=== PATIENT | male | born 1955 | race Caucasian/White ===

== ENCOUNTER 2020-09-26 14:28 | Observation (INO) ==
[2020-09-26] MEDS ORDERED: KETOROLAC TROMETHAMINE 15 MG/ML VIAL IV STA (14:48)
[2020-09-26] MEDS ORDERED: SODIUM CHLORIDE 0.9% 1000ML 1,000 ML IV ONE (14:48)
[2020-09-26] MEDS ORDERED: oxyCODONE/ACETAMINOPHEN 5mg/325mg TAB PO STA (14:50)
--- NOTE | 2020-09-26 14:53 | Emergency Department Note ---
History of Present Illness General Chief Complaint: Flank Pain Stated Complaint: BACK PAIN Time Seen by Provider: 09/26/20 14:36 History of Present Illness Provider Complaint: flank pain (L) Onset (ago): 2 day(s) Pain Consistency: intermittent Location: L flank Radiation: LLQ Severity: severe Maximum Pain Intensity: 10 Current Pain Intensity: 9 Quality: + stabbing and + sharp Relieved By: + nothing Exacerbated By: + other (urination) Context: + history of similar episodes (hisotry kidney stones); no foreign travel, no possible food poisoning, no recent antibiotic use, no recent surgery/procedure and no recent injury Associated Symptoms: + nausea and + dysuria; no vomiting, no diarrhea, no fever, no chills, no constipation, no hematemesis, no hematochezia, no melena, no hematuria, no anorexia, no headache, no neck pain, no back pain, no chest pain, no weakness, no breathing difficulty and no numbness Home Medications Medication Instructions Recorded Confirmed Type etodolac 200 mg PO BID PRN #20 cap 09/25/20 09/26/20 Rx ondansetron 4 mg PO Q8H PRN #30 tab 09/25/20 09/26/20 Rx tamsulosin [Flomax] 0.4 mg PO DAILY #14 cap 09/25/20 09/26/20 Rx Allergies Allergy/AdvReac Type Severity Reaction Status Date / Time No Known Allergies Allergy Unverified 09/25/20 11:05 Past Med/Surg History Medical History (Updated 09/26/20 @ 17:16 by Berny Rutherford) Calculus of kidney Dyslipidemia Surgical History H/O lithotripsy Family History Other Kidney stones Social History Smoking Status: Never smoker Hx Alcohol Use: Yes Alcohol type: hard liquor Alcohol Intake Frequency: Monthly or Less Preferred Language: Faroese Feels Safe at Home: Yes Review of Systems A total of 10 systems reviewed and were otherwise negative Physical Exam Vital Signs: Vital Signs - 24 hr 09/26/20 14:29 09/26/20 14:43 09/26/20 14:46 Temperature 36.2 C L Temperature Source Temporal Artery Sc an Pulse Rate 91 H 83 89 Pulse Rate [Left F rosaura] 87 Pulse Rate from Sp O2 Sensor 84 Pulse Rhythm Regular Pulse Rhythm [Left Finger] Regular Pulse Strength [Le ft Finger] Normal Respiratory Rate 18 21 15 Respiratory Effort / Characteristics Non-Labored Respiratory Depth Normal Respiratory Patter n Regular Blood Pressure 176/95 H 181/95 H Blood Pressure [Ri ght Arm] 181/95 H Blood Pressure Radha n 122 123 Blood Pressure Radha n [Right Arm] 123 Blood Pressure Pos ition [Right Arm] Sitting Pulse Oximetry 96 97 97 Oxygen Delivery Me thod Room Air Room Air Sepsis Recent Feve r Within 48 Hours No Sepsis New/Unexpla ined Change in Men gila Status No Sepsis Action Take n by Nursing No Action Required 09/26/20 15:24 09/26/20 15:30 09/26/20 15:40 Temperature Temperature Source Pulse Rate 82 86 82 Pulse Rate [Left F rosaura] Pulse Rate from Sp O2 Sensor 82 87 82 Pulse Rhythm Pulse Rhythm [Left Finger] Pulse Strength [Le ft Finger] Respiratory Rate 19 20 20 Respiratory Effort / Characteristics Respiratory Depth Respiratory Patter n Blood Pressure Blood Pressure [Ri ght Arm] Blood Pressure Radha n Blood Pressure Radha n [Right Arm] Blood Pressure Pos ition [Right Arm] Pulse Oximetry 95 96 95 Oxygen Delivery Me thod Sepsis Recent Feve r Within 48 Hours Sepsis New/Unexpla ined Change in Men gila Status Sepsis Action Take n by Nursing 09/26/20 15:50 09/26/20 16:00 09/26/20 16:10 Temperature Temperature Source Pulse Rate 87 96 H 81 Pulse Rate [Left F rosaura] Pulse Rate from Sp O2 Sensor 85 98 H 83 Pulse Rhythm Pulse Rhythm [Left Finger] Pulse Strength [Le ft Finger] Respiratory Rate 24 18 14 Respiratory Effort / Characteristics Respiratory Depth Respiratory Patter n Blood Pressure Blood Pressure [Ri ght Arm] Blood Pressure Radha n Blood Pressure Radha n [Right Arm] Blood Pressure Pos ition [Right Arm] Pulse Oximetry 97 96 95 Oxygen Delivery Me thod Sepsis Recent Feve r Within 48 Hours Sepsis New/Unexpla ined Change in Men gila Status Sepsis Action Take n by Nursing 09/26/20 16:20 09/26/20 16:30 09/26/20 16:54 Temperature Temperature Source Pulse Rate 90 91 H Pulse Rate [Left F rosaura] 78 Pulse Rate from Sp O2 Sensor 88 86 Pulse Rhythm Pulse Rhythm [Left Finger] Regular Pulse Strength [Le ft Finger] Normal Respiratory Rate 19 17 20 Respiratory Effort / Characteristics Non-Labored Sponta neous Respiratory Depth Normal Respiratory Patter n Regular Blood Pressure Blood Pressure [Ri ght Arm] 129/85 Blood Pressure Radha n Blood Pressure Radha n [Right Arm] 99 Blood Pressure Pos ition [Right Arm] Sitting Pulse Oximetry 98 97 98 Oxygen Delivery Me thod Room Air Sepsis Recent Feve r Within 48 Hours Sepsis New/Unexpla ined Change in Men gila Status Sepsis Action Take n by Nursing Physical Exam: Physical Exam GENERAL: He is oriented to person, place, and time. He appears well-developed and well-nourished. He does not appear distressed. HENT: Exam performed. - Head: Normocephalic and atraumatic. - Right Ear: External ear normal. No mastoid tenderness. - Left Ear: External ear normal. No mastoid tenderness. - Mouth/Throat: The oropharynx is clear and moist. No trismus in the jaw. No dental abscesses or uvula swelling. No oropharyngeal exudate or tonsillar abscesses. EYES: Conjunctivae and EOM are normal. Pupils are equal, round, and reactive to light. Right eye exhibits no discharge. Left eye exhibits no discharge. No scleral icterus. NECK: Normal range of motion. Neck supple. No JVD present. No spinous process tenderness present. No carotid bruit present. No rigidity. No tracheal deviation and normal range of motion present. No Brudzinski's sign and no Kernig's sign noted. CV: Normal rate, regular rhythm, normal heart sounds and intact distal pulses. There is no peripheral edema. Palpable radial pulses bue. PULM/CHEST: Effort normal and breath sounds normal. No respiratory distress. No stridor. He has no wheezes. He has no rales. - Chest Wall: He exhibits no tenderness. ABD: The abdomen is soft. Bowel sounds are normal. He has no distension. No mass is present. There is no tenderness. There is no rebound, no guarding, no Rosita y's sign and no tenderness at McBurney's point. Rovsig negative. Left-sided CVA tenderness. MUSC/SKEL: Normal range of motion. There is no peripheral edema, tenderness or deformity. LYMPH: No cervical adenopathy. NEURO: He is alert and oriented to person, place, and time. He has normal strength. No cranial nerve deficit or sensory deficit. Coordination and gait normal. GCS eye subscore is 4. GCS verbal subscore is 5. GCS motor subscore is 6. Cerebellar tests wnl. SKIN: Skin is warm and dry. He is not diaphoretic. PSYCH: He has a normal mood and affect. Behavior is normal. Judgment and thought content normal. Course Course 1436: The patient was evaluated in room C2. A complete history and physical exam was performed Cardiac monitoring: An order was placed for continuous cardiac monitoring. The monitor shows a rate of 90 with sinus rhythm 1545: Vital signs stable. Labs show acute kidney injury with creatinine of 1.68. This is elevated from yesterday when his creatinine was 1.14. [facility]. Zeny Lomax states to admit to Dr. Scanlon. Administered Medications Discontinued Medications Sodium Chloride (Nss 1000ml) 1,000 mls @ 999 mls/hr IV .Q1H1M ONE Stop: 09/26/20 15:48 Last Infusion: 09/26/20 16:21 Dose: 0 mls/hr Documented by: [id number] Admin: 09/26/20 14:58 Dose: 999 mls/hr Documented by: [id number] Ketorolac Tromethamine (Ketorolac Tromethamine 15 Mg/Ml Vial) 30 mg IV NOW STA Stop: 09/26/20 14:49 Last Admin: 09/26/20 15:07 Dose: 30 mg Documented by: [id number] Oxycodone/Acetaminophen (Oxycodone/Acetaminophen 5mg/325mg Tab) 1 tab PO NOW STA Stop: 09/26/20 14:51 Last Admin: 09/26/20 15:06 Dose: 1 tab Documented by: [id number] Medical Decision Making Laboratory Data Result diagrams: 09/26/20 Unknown 09/26/20 Unknown Lab Results 09/26/20 09/26/20 09/26/20 Range/Units Unknown Unknown Unknown WBC 11.69 H (4.8-10.8) K/uL RBC 4.96 (4.7-6.1) M/uL Hgb 15.3 (14.0-18.0) g/dL Hct 43.2 (42-52) % MCV 87.1 (80-100) fL MCH 30.8 (25-34) pg MCHC 35.4 (32-36) g/dL RDW Std Deviation 40.3 (36.4-46.3) fL RDW Coeff of Neva 12.6 (11.5-14.5) % Plt Count 197 (130-400) K/uL MPV 9.2 (7.4-10.4) fL Immature Gran % (Auto) 0.3 % Neut % (Auto) 85.3 % Lymph % (Auto) 6.4 % [place] % (Auto) 7.4 % Eos % (Auto) 0.4 % Baso % (Auto) 0.2 % Neut # (Auto) 9.97 H (1.4-6.5) K/uL Lymph # (Auto) 0.75 L (1.2-3.4) K/uL [place] # (Auto) 0.87 H (0.11-0.59) K/uL Eos # (Auto) 0.05 (0-0.5) K/uL Baso # (Auto) 0.02 (0-0.2) K/uL Immature Gran # (Auto) 0.03 H (0.00-0.02) K/uL Sodium 135 L (136-145) mmol/L Potassium 3.8 (3.5-5.1) mmol/L Chloride 100 (98-107) mmol/L Carbon Dioxide 29 (21-32) mmol/L Anion Gap 6.0 (3-11) BUN 17 (7-18) mg/dl Creatinine 1.68 H D (0.6-1.4) mg/dl Est Cr Clr Drug Dosing 57.9 ml/min Est GFR ( Amer) 48.7 ml/min Est GFR (Non-Af Amer) 42.0 ml/min BUN/Creatinine Ratio 10.0 (10-20) Glucose 108 H (70-99) mg/dl Lactate 1.6 (0.4-2.0) mmol/L Calcium 8.8 (8.5-10.1) mg/dl Urine Color Urine Appearance (Clear) Urine pH (4.5-7.5) Ur Specific [place] (1.000-1.030) Urine Protein (Negative) Urine Glucose (UA) (Negative) Urine Ketones (Negative) Urine Blood (Negative) Urine Nitrite (Negative) Urine Bilirubin (Negative) Urine Urobilinogen (Negative) Ur Leukocyte Esterase (Negative) Urine WBC (Auto) (0-5) /hpf Urine RBC (Auto) (0-4) /hpf U Hyaline Cast (Auto) (0-5) /lpf U Epithel Cells (Auto) (0-5) /lpf Urine Bacteria (Auto) (Negative) COVID-19 Eval Order SARS-CoV-2 (PCR) (Negative) 09/26/20 09/26/20 09/26/20 Range/Units Unknown Unknown Unknown WBC (4.8-10.8) K/uL RBC (4.7-6.1) M/uL Hgb (14.0-18.0) g/dL Hct (42-52) % MCV (80-100) fL MCH (25-34) pg MCHC (32-36) g/dL RDW Std Deviation (36.4-46.3) fL RDW Coeff of Neva (11.5-14.5) % Plt Count (130-400) K/uL MPV (7.4-10.4) fL Immature Gran % (Auto) % Neut % (Auto) % Lymph % (Auto) % [place] % (Auto) % Eos % (Auto) % Baso % (Auto) % Neut # (Auto) (1.4-6.5) K/uL Lymph # (Auto) (1.2-3.4) K/uL [place] # (Auto) (0.11-0.59) K/uL Eos # (Auto) (0-0.5) K/uL Baso # (Auto) (0-0.2) K/uL Immature Gran # (Auto) (0.00-0.02) K/uL Sodium (136-145) mmol/L Potassium (3.5-5.1) mmol/L Chloride (98-107) mmol/L Carbon Dioxide (21-32) mmol/L Anion Gap (3-11) BUN (7-18) mg/dl Creatinine (0.6-1.4) mg/dl Est Cr Clr Drug Dosing ml/min Est GFR ( Amer) ml/min Est GFR (Non-Af Amer) ml/min BUN/Creatinine Ratio (10-20) Glucose (70-99) mg/dl Lactate (0.4-2.0) mmol/L Calcium (8.5-10.1) mg/dl Urine Color Yellow Urine Appearance Clear (Clear) Urine pH 5.0 (4.5-7.5) Ur Specific [place] 1.018 (1.000-1.030) Urine Protein Negative (Negative) Urine Glucose (UA) Negative (Negative) Urine Ketones 1+ H (Negative) Urine Blood Trace H (Negative) Urine Nitrite Negative (Negative) Urine Bilirubin Negative (Negative) Urine Urobilinogen Negative (Negative) Ur Leukocyte Esterase Negative (Negative) Urine WBC (Auto) 1-5 (0-5) /hpf Urine RBC (Auto) 0-4 (0-4) /hpf U Hyaline Cast (Auto) 1-5 (0-5) /lpf U Epithel Cells (Auto) 0-5 (0-5) /lpf Urine Bacteria (Auto) Negative (Negative) COVID-19 Eval Order Covid19 at [facility] SARS-CoV-2 (PCR) NEGATIVE (Negative) MDM Narrative 1436: The patient was evaluated in room C2. A complete history and physical exam was performed Cardiac monitoring: An order was placed for continuous cardiac monitoring. The monitor shows a rate of 90 with sinus rhythm 1545: Vital signs stable. Labs show acute kidney injury with creatinine of 1.68. This is elevated from yesterday when his creatinine was 1.14. [facility]. Zeny Lomax states to admit to Dr. Scanlon. Impression & Plan Calculus of kidney, ANNALISE (acute kidney injury) Discharge Plan Visit Data Chief Complaint: Flank Pain Stated Complaint: BACK PAIN ED Provider: Berny Rutherford Discharge Problem: Calculus of kidney, ANNALISE (acute kidney injury) Patient Disposition: Admitted As Inpatient Forms Stand Alone Forms: [employer] Prescriptions Prescriptions: No Action etodolac 200 mg capsule 200 mg PO BID PRN (Reason: pain) Qty: 20 RF: 0 tamsulosin [Flomax] 0.4 mg capsule 0.4 mg PO DAILY Qty: 14 RF: 0 ondansetron 4 mg tablet,disintegrating 4 mg PO Q8H PRN (Reason: nausea and vomiting) Qty: 30 RF: 0 Referrals Referrals: Golden King MD [Primary Care Provider] -
[2020-09-26 15:13] LABS: Basophils # (auto) 0.02 K/uL (0-0.2); Basophils % (auto) 0.2 %; Eosinophils # (auto) 0.05 K/uL (0-0.5); Eosinophils % (auto) 0.4 %; Hematocrit (blood only) 43.2 % (42-52); Hemoglobin 15.3 g/dL (14.0-18.0); Immature Granulocytes # (auto) 0.03 K/uL (0.00-0.02); Immature Granulocytes % (auto) 0.3 %; Lymphocytes # (auto) 0.75 K/uL (1.2-3.4); Lymphocytes % (auto) 6.4 %; Mean Corpuscular Hemoglobin 30.8 pg (25-34); Mean Corpuscular Hgb Conc 35.4 g/dL (32-36); Mean Corpuscular Volume 87.1 fL (80-100); Mean Platelet Volume 9.2 fL (7.4-10.4); Monocytes # (auto) 0.87 K/uL (0.11-0.59); Monocytes % (auto) 7.4 %; Neutrophils # (auto) 9.97 K/uL (1.4-6.5); Neutrophils % (auto) 85.3 %; Platelet Count 197 K/uL (130-400); RDW Coefficient of Variation 12.6 % (11.5-14.5); RDW Standard Deviation 40.3 fL (36.4-46.3); Red Blood Count 4.96 M/uL (4.7-6.1); White Blood Count 11.69 K/uL (4.8-10.8)
[2020-09-26 15:31] LABS: Calcium 8.8 mg/dl (8.5-10.1); Creatinine Clr Calc Pharmacy 57.9 ml/min; Est GFR (African American) 48.7 ml/min; Potassium 3.8 mmol/L (3.5-5.1)
[2020-09-26 15:39] LABS: Appearance Urine Clear (Clear); Bacteria Urine Automated Negative (Negative); Bilirubin Urine Negative (Negative); Blood Urine Trace (Negative); Color Urine Yellow; Epithelial Cell Urine Auto 0-5 /lpf (0-5); Glucose Urine UA Negative (Negative); Ketones Urine 1+ (Negative); Leukocyte Esterase Urine Negative (Negative); Nitrite Urine Negative (Negative); Protein Urine Negative (Negative); RBC Urine Automated 0-4 /hpf (0-4); Specific Gravity Urine 1.018 (1.000-1.030); Urobilinogen Urine Negative (Negative)
--- NOTE | 2020-09-26 16:13 | History & Physical Report ---
Date of Service September 26, 2020 Assessment & Plan (1) Left ureteral stone: (2) Hydronephrosis due to obstruction of ureter: (3) History of renal calculi: This is a 65yo M with PMH of kidney stones presenting with continued flank pain x 2 days in setting of L ureteral stone with mild hydronephrosis. Seen in ER yesterday for flank pain and CT abd/pelvis with 4mm L ureteral stone with mild hydronephrosis and discharged home on flomax Returns this evening with worsening pain UA without evidence of infection Continue Tylenol and oxycodone PRN, IV Dilaudid Q6H PRN for severe pain Avoiding Toradol in setting of ANNALISE Continue Flomax IV fluids Strain urine Routine urology consult (4) Acute kidney injury: Cr elevated to 1.68 (from 1.14) in setting of mildly obstructing ureteral stone Avoid nephrotoxic agents Monitor with daily BMP DVT Ppx: SCDs for now Code status: FULL PCP: Christine Dispo: Observation med tele Patient seen in collaboration with Dr. Chester. Please see addendum. History of Present Illness Chief Complaint: flank pain Primary Care Provider: Golden King MD This is a 65yo M with PMH of kidney stones presenting with continued flank pain x 2 days. History of calcium oxalate stones in the past that usually pass on their own. Has remote history of lithotripsy and has followed with [facility] urology in the past. Was seen in ED yesterday for L flank pain and was found to have 4mm L ureteral stone with mild hydronephrosis. Renal function was normal. Patient sent home on flomax and pain control. Pain persisted and worsened overnight so patient returned to ED this afternoon. Described pain as left sided flank radiating to groin associated with dysuria, increased frequency. Endorses nausea, no vomiting. Pain resolved with oxycodone and Toradol in ED. Cr elevated to 1.68 (from 1.14). Denies fever, chills, lightheadedness, headache, chest pain, SOB, vomiting, abdominal pain, diarrhea or constipation. Allergies Allergy/AdvReac Type Severity Reaction Status Date / Time No Known Allergies Allergy Unverified 09/25/20 11:05 Home Medications Medication Instructions Recorded Confirmed Type etodolac 200 mg PO BID PRN #20 cap 09/25/20 09/26/20 Rx ondansetron 4 mg PO Q8H PRN #30 tab 09/25/20 09/26/20 Rx tamsulosin [Flomax] 0.4 mg PO DAILY #14 cap 09/25/20 09/26/20 Rx Past Med/Surg History Medical History (Updated 09/26/20 @ 16:35 by Zeny Lomax PA-C) Calculus of kidney Dyslipidemia Surgical History H/O lithotripsy Family History Other Kidney stones Social History Smoking Status: Never smoker Hx Alcohol Use: Yes Alcohol type: hard liquor Alcohol Intake Frequency: Monthly or Less Preferred Language: German Feels Safe at Home: Yes Review of Systems Review of Systems: At least ten systems reviewed and negative except as noted in the HPI. Physical Exam Physical Exam: Please see Dr. Chester's addendum for physical exam. Results & Data Results & Data ([facility]) Vital Signs (Past 12 Hours) Vital Signs Temp Pulse Pulse Resp BP BP Pulse Ox 09/26/20 14:46 89 87 15 181/95 H 97 09/26/20 14:29 36.2 C L 91 H 18 176/95 H 96 Laboratory Results Short CBC 09/26/20 09/26/20 Range/Units Unknown Unknown WBC 11.69 H (4.8-10.8) K/uL Hgb 15.3 (14.0-18.0) g/dL Hct 43.2 (42-52) % Plt Count 197 (130-400) K/uL Creatinine 1.68 H D (0.6-1.4) mg/dl BMP 09/26/20 Unknown Sodium 135 L Potassium 3.8 Chloride 100 Carbon Dioxide 29 BUN 17 Creatinine 1.68 H D Glucose 108 H Calcium 8.8 Urine 09/26/20 Range/Units Unknown Urine Color Yellow Urine Appearance Clear (Clear) Urine pH 5.0 (4.5-7.5) Ur Specific [place] 1.018 (1.000-1.030) Urine Protein Negative (Negative) Urine Glucose (UA) Negative (Negative) Supervising Physician Co-Signing Physician Notes 65-year-old man with history of kidney stones who presented to the ER with left flank pain started yesterday. Patient had been evaluated and managed in the ER yesterday and discharged home but represented today with recurrence of pain. History and physical exam performed by me as detailed by Zeny Lomax PA-C. At the time of evaluation, patient had no pain. Stated that pain had resolved after getting oxycodone and Toradol in the ER General: Well hydrated, Obese, no acute distress and not ill appearing Eyes: PERRL, conjunctivae normal, not pale, anicteric sclerae, EOM intact bilaterally ENMT: External ear and nose normal, oropharynx normal Neck: Normal visual inspection, no tracheal deviation, no swelling noted Respiratory: Normal respiratory effort, no respiratory distress, lungs clear to auscultation, no crackles and no wheezes Cardiovascular: Pulse is RRR. Normal S1 and normal S2; no murmurs. Vessels: normal peripheral pulses Extremities: no pedal edema Gastrointestinal (Abdomen): Abdomen is not distended, soft, non-tender to palpation, no guarding, no palpable hepatosplenomegaly, normal bowel sounds Musculoskeletal: No cyanosis or clubbing, all extremities motor strength 5/5 Genitourinary: No CVA tenderness at this time Skin: No rash noted on gross inspection, No ulcers noted Neurologic: Alert and oriented x 3, No focal weakness, sensation grossly intact Psychiatric: Alert and oriented x 3, euthymic affect, no depressed affect Labs notable for sodium of 135 and creatinine of 1.68 [increase from 1.14 yesterday] Abdominal pelvic CT from yesterday showed bilateral nephrolithiasis with a 4 mm proximal left ureteral calculus at the L3-4 level with secondary mild obstructive changes -Left ureteral calculus -Bilateral nephrolithiasis -ANNALISE Continue IV fluids normal saline at 125 cc/h Monitor renal function. We will hold off any further Toradol dose for tonight and reassess in a.m. Continue pain control with oxycodone and Dilaudid as needed Continue Flomax Will appreciate urology evaluation and recommendation Blood pressure was elevated on admission. Currently improved with pain control. Other plans as detailed by Zeny Lomax PA-C.
[2020-09-26] MEDS ORDERED: HYDROmorphone INJ 0.5 MG/0.5 ML SYR IV PRN (17:34)
[2020-09-26] MEDS ORDERED: oxyCODONE HCL IR 5 MG TAB (IMMEDIATE RELEASE) PO PRN (17:34)
[2020-09-26] MEDS ORDERED: ONDANSETRON INJ 2 MG/ML 2 ML VIAL IV PRN (17:34)
[2020-09-26] MEDS ORDERED: POLYETHYLENE (MIRALAX) 17 GM PACK PO PRN (17:34)
[2020-09-26] MEDS: SODIUM CHLORIDE 0.9% 1000ML 1,000 ML IV SCH (17:58)
[2020-09-26] MEDS ORDERED: ACETAMINOPHEN 500 MG TAB PO SCH (18:00)
[2020-09-26] MEDS ORDERED: ACETAMINOPHEN 500 MG TAB PO PRN (18:11)
--- NOTE | 2020-09-26 21:56 | Urology Consultation ---
Date of Consultation September 26, 2020 Assessment & Plan (1) Calculus of kidney: Patient has been admitted to the hospital in the hospital service we should proceed as follows: Provide analgesics Provide antiemetics Provide IV fluid for hydration Initiate Flomax for expulsive therapy Recommend repeating labs tomorrow to see if his renal function has further deteriorated Patient n.p.o. after midnight in the event that cystoscopic intervention is required We will continue to follow the patient is hospitalized History of Present Illness Reason for Consultation: Nephrolithiasis Attending Physician: Ghislaine Chester MD History of Present Illness This is a 65-year-old male with a longstanding history of multiple kidney stones. The patient says that he has had innumerable kidney stones that have usually passed on their own. He says he did require lithotripsy on one occasion. Patient presented to the emergency department yesterday secondary to left-sided flank pain. He said that the pain radiated to his left groin with no palliative or provocative factors. He says that the pain just comes and goes randomly. He did have nausea without vomiting. He denies any fevers, shakes, chills. Was seen in the emergency department yesterday where he had a CT scan that showed that he had a 4mm obstructing kidney stone. He was discharged home with pain control measures but return to the emergency department due to ongoing and poorly controlled pain. At the patient's visit yesterday in the emergency department he did have the labs and imaging which I independently reviewed. Patient CBC revealed a white blood cell count of 11. Her hemoglobin and hematocrit were both noted be within normal range. Patient's platelet count was noted to be normal. Chemistry profile showed his Sodium was 135 and potassium within normal range. Patient was noted to have an elevated creatinine of 1.6. As noted above CT scan showed patient had a 4 mm left-sided obstructing kidney stone. At the time of my interview the patient was resting comfortably in bed and his pain was well controlled Allergies Allergy/AdvReac Type Severity Reaction Status Date / Time No Known Allergies Allergy Unverified 09/25/20 11:05 Home Medications Medication Instructions Recorded Confirmed Type etodolac 200 mg PO BID PRN #20 cap 09/25/20 09/26/20 Rx ondansetron 4 mg PO Q8H PRN #30 tab 09/25/20 09/26/20 Rx tamsulosin [Flomax] 0.4 mg PO DAILY #14 cap 09/25/20 09/26/20 Rx Patient History Medical History Calculus of kidney Dyslipidemia Surgical History H/O lithotripsy Family History Other Kidney stones Social History Smoking Status: Never smoker Hx Alcohol Use: Yes Alcohol type: beer, wine and hard liquor Alcohol Intake Frequency: Monthly or Less Hx Substance Use: No Preferred Language: [place] Beliefs That Will Affect Care: None Current Living Situation: Spouse Feels Safe at Home: Yes Safety Concerns: Feels Safe At This Time Review of Systems Constitutional: no fever and no chills Eyes: no diplopia Ear, Nose, Mouth, Throat: no ear pain Respiratory: no cough and no dyspnea Cardiovascular: no chest pain Gastrointestinal: no abdominal pain Genitourinary: + dysuria and + flank pain (Left-sided); no hematuria Musculoskeletal: + back pain (Left-sided flank pain) Integumentary: + rash Neurologic: no localized weakness Physical Exam Constitutional: well developed and well nourished; no acute distress Eyes: no conjunctival abnormality ENMT: Ears: no hearing impairment Neck: trachea midline, no thyromegaly Respiratory: normal respiratory effort, lungs clear to auscultation Cardiovascular: Rate/Rhythm: regular rate and regular rhythm Gastrointestinal (Abdomen): Percussion/Palpation: abdomen soft; abdomen nontender Musculoskeletal: No calf tenderness Skin: no rashes, warm and dry Neurologic: moves all extremities Psychiatric: A+Ox3, euthymic affect Genitourinary: no CVA tenderness Results & Data ([facility]) Vital Signs (Past 12 Hours) Vital Signs Temp Pulse Pulse Resp BP BP Pulse Ox 09/26/20 17:36 36.8 C 85 18 165/89 H 97 09/26/20 16:54 78 20 129/85 98 09/26/20 16:30 91 H 17 97 09/26/20 16:20 90 19 98 09/26/20 16:10 81 14 95 09/26/20 16:00 96 H 18 96 09/26/20 15:50 87 24 97 09/26/20 15:40 82 20 95 09/26/20 15:30 86 20 96 09/26/20 15:24 82 19 95 09/26/20 14:46 89 87 15 181/95 H 97 09/26/20 14:43 83 21 181/95 H 97 09/26/20 14:29 36.2 C L 91 H 18 176/95 H 96 PG Care Time/CCT Total # of Minutes Spent Total Time Spent with Patient: Total time spent is greater than 50% in coordination of care (as documented) at patient's floor/unit and/or counseling patient: Coding Level of Care Code 21625 Inpt Consult Level 5 Diagnoses Calculus of kidney N20.0
[2020-09-27] MEDS: SODIUM CHLORIDE 0.9% 1000ML 1,000 ML IV SCH (02:34)
[2020-09-27 06:32] LABS: Hematocrit (blood only) 41.9 % (42-52); Hemoglobin 14.7 g/dL (14.0-18.0); Mean Corpuscular Hemoglobin 30.4 pg (25-34); Mean Corpuscular Hgb Conc 35.1 g/dL (32-36); Mean Corpuscular Volume 86.7 fL (80-100); Mean Platelet Volume 9.8 fL (7.4-10.4); Platelet Count 200 K/uL (130-400); RDW Coefficient of Variation 12.7 % (11.5-14.5); RDW Standard Deviation 40.6 fL (36.4-46.3); Red Blood Count 4.83 M/uL (4.7-6.1); White Blood Count 8.34 K/uL (4.8-10.8)
[2020-09-27 07:07] LABS: BUN Creatinine Ratio 13.2 (10-20); Calcium 8.6 mg/dl (8.5-10.1); Creatinine Clr Calc Pharmacy 92.1 ml/min; Est GFR (African American) 84.9 ml/min; Est GFR (Non-African American) 73.3 ml/min; Potassium 3.9 mmol/L (3.5-5.1)
--- NOTE | 2020-09-27 08:59 | Urology Progress Note ---
Date of Service September 27, 2020 Assessment & Plan (1) Left ureteral stone: (2) Hydronephrosis due to obstruction of ureter: 65 year-old male patient admitted with intractable left flank pain secondary to obstructing 4 mm proximal left ureteral calculus. -Patient with spontaneous passage of stone last evening. -Now with resolution of pain. -He remains afebrile. -Labs reviewed - white count normal, creatinine returned to baseline. -Urinalysis on admission not suspicious for infection. -As he is feeling well, okay to resume diet. -Okay to discharge home from perspective. -Discussed basic stone prevention, await stone analysis. -Will arrange outpatient follow-up with urology service for on-going management of renal stones. -Expected clinical course reviewed with patient, all questions answered. Thank you for allowing us to participate in the acute care of . Please reconsult us with additional questions, concerns or changes in patient status. Admission and Anticipated Discharge Date Admission Date: September 26, 2020 Subjective Patient seen and examined at bedside. He is alert, awake, comfortable. Does report he passed his stone spontaneously last evening. Pain has since resolved since stone passage. Currently denies abdominal/flank pain. Did have dysuria with stone passage but denies dysuria and hematuria at this time. Denies urinary frequency/urgency. Denies nausea or vomiting. Denies fevers or chills. Did follow with [facility] urology service, last seen in [address] Agarwal. Overall, feels back to his baseline. Chart review: Afebrile Wbc 8.34 Hgb 14.7 Creatinine 1.06 (previously 1.68) Urinalysis on admission not suspicious for infection. Denies additional urologic concerns today. Review of Systems Constitutional: as per Subjective / HPI; no fever and no chills Gastrointestinal: as per Subjective / HPI; no nausea and no vomiting Genitourinary: + as per Subjective / HPI Physical Exam Constitutional: well developed and well nourished; no acute distress and not ill appearing Respiratory: normal respiratory effort and able to speak in complete sentences; no respiratory distress and no audible wheezes Gastrointestinal (Abdomen): Inspection/Auscultation: abdomen normal to inspection; abdomen not distended Percussion/Palpation: abdomen soft; abdomen nontender and no guarding Psychiatric: Orientation: alert, oriented x 3 and cooperative Affect: euthymic affect Genitourinary: no CVA tenderness Results & Data ([facility]) Vital Signs (Past 12 Hours) Vital Signs Temp Pulse Pulse Resp BP Pulse Ox 09/27/20 07:23 37.0 C 88 14 160/84 H 94 09/26/20 23:01 36.7 C 80 18 158/83 H 97 PG Care Time/CCT Total # of Minutes Spent Total Time Spent with Patient: Total time spent is greater than 50% in coordination of care (as documented) at patient's floor/unit and/or counseling patient: Coding Level of Care Code 91486 Subseq Hosp Care Lvl 2 Diagnoses Left ureteral stone N20.1 Hydronephrosis due to obstruction of ureter N13.1
[2020-09-27] MEDS ORDERED: TAMSULOSIN HCL 0.4 MG CAP PO SCH (09:00)
--- NOTE | 2020-09-27 10:33 | Discharge Summary ---
Date of Service September 27, 2020 Admission HPI Per Admitting Provider This is a 65yo M with PMH of kidney stones presenting with continued flank pain x 2 days. History of calcium oxalate stones in the past that usually pass on their own. Has remote history of lithotripsy and has followed with [facility] urology in the past. Was seen in ED yesterday for L flank pain and was found to have 4mm L ureteral stone with mild hydronephrosis. Renal function was normal. Patient sent home on flomax and pain control. Pain persisted and worsened overnight so patient returned to ED this afternoon. Described pain as left sided flank radiating to groin associated with dysuria, increased frequency. Endorses nausea, no vomiting. Pain resolved with oxycodone and Toradol in ED. Cr elevated to 1.68 (from 1.14). Denies fever, chills, lightheadedness, headache, chest pain, SOB, vomiting, abdominal pain, diarrhea or constipation. Admission Exam Per Admitting Provider General: Well hydrated, Obese, no acute distress and not ill appearing Eyes: PERRL, conjunctivae normal, not pale, anicteric sclerae, EOM intact bilaterally ENMT: External ear and nose normal, oropharynx normal Neck: Normal visual inspection, no tracheal deviation, no swelling noted Respiratory: Normal respiratory effort, no respiratory distress, lungs clear to auscultation, no crackles and no wheezes Cardiovascular: Pulse is RRR. Normal S1 and normal S2; no murmurs. Vessels: normal peripheral pulses Extremities: no pedal edema Gastrointestinal (Abdomen): Abdomen is not distended, soft, non-tender to palpation, no guarding, no palpable hepatosplenomegaly, normal bowel sounds Musculoskeletal: No cyanosis or clubbing, all extremities motor strength 5/5 Genitourinary: No CVA tenderness at this time Skin: No rash noted on gross inspection, No ulcers noted Neurologic: Alert and oriented x 3, No focal weakness, sensation grossly intact Psychiatric: Alert and oriented x 3, euthymic affect, no depressed affect Principal Diagnosis Bilateral nephrolithiasis Left ureteral stone Acute kidney injury Discharge Exam Constitutional + well hydrated and + obese; no acute distress Eyes PERRL, conjunctivae normal, anicteric sclerae ENMT external ear and nose normal, oropharynx normal Respiratory normal respiratory effort, lungs clear to auscultation Cardiovascular RRR, no murmur, no edema Gastrointestinal (Abdomen) normal bowel sounds, soft, nontender, no hepatosplenomegaly Musculoskeletal no cyanosis or clubbing, extremities motor strength 5/5 Neurologic PERRL, EOMI, accommodation nl, no face palsy, no dysarthria Psychiatric A+Ox3, euthymic affect Genitourinary no CVA tenderness Discharge Data Allergies Allergy/AdvReac Type Severity Reaction Status Date / Time No Known Allergies Allergy Unverified 09/25/20 11:05 Consultations 09/26/20 15:47 ED Decision to Admit Stat 09/26/20 17:[address] ABD/PELVIS 09/25/20 FINDINGS: Lower chest: There are mild basilar atelectatic changes. There is a small Bochdalek hernia Liver: The unenhanced liver is normal in size, contour, and attenuation. There is no intrahepatic biliary ductal dilatation. There is hepatic steatosis. There is focal fatty sparing adjacent the gallbladder fossa. Gallbladder: Unremarkable. Spleen: Normal in size and attenuation. Pancreas: Unremarkable. Adrenal glands: Unremarkable. Kidneys: There are multiple bilateral renal calculi numbering in excess of 10 bilaterally. There is mild left-sided hydronephrosis. There is a 4 mm proximal left ureteral calculus at the L3-4 level. There are bilateral renal hypodensities statistically representing cysts. Bowel: There are no transition zones indicate bowel obstruction. There is no evidence of acute diverticulitis. The appendix appears normal. Peritoneum: There is no intraperitoneal free air or abdominal ascites. There is a small fat-containing umbilical hernia. There is a small fat-containing left inguinal hernia. Vasculature: The abdominal aorta is normal in course and caliber. Adenopathy: None. Pelvic viscera: There is prostatomegaly and bladder wall thickening. Skeletal structures: No destructive osseous lesions are seen. IMPRESSION: 1. Bilateral nephrolithiasis 2. 4 mm proximal left ureteral calculus at the L3-4 level with secondary mild obstructive changes. Hospital Course (1) Left ureteral stone: (2) Hydronephrosis due to obstruction of ureter: (3) Acute kidney injury: (4) History of renal calculi: 65yo M with PMH of kidney stones presenting with continued flank pain x 2 days in setting of L ureteral stone with mild hydronephrosis. Seen in ER on 09/25/20 for flank pain and CT abd/pelvis with 4mm L ureteral stone with mild hydronephrosis and discharged home on flomax Returns on 09/26/20 with worsening pain UA without evidence of infection Cr was elevated to 1.68 (from 1.14 the previous day) He was started on IVF and pain regimen Patient was also seen by the urologist Patient passed the stone yesterday evening Pain has resolved since ANNALISE resolved. Cr is 1.06 this morning Patient advised to continue Flomax He will follow up with urology outpatient Total Time Total Time Spent Total Time Spent (In Minutes): 45 Total Time Includes: Examination of the Patient, Discharge Planning, Medication Reconciliation and Communication With Other Providers Discharge Plan Discharge Items Patient Disposition: Home - Self-Care Reason For Visit: RENAL STONES Discharge Diagnosis: Bilateral nephrolithiasis Left ureteral stone Acute kidney injury Activity: Resume your previous activity Non-emergency contact: Primary Care Provider Call non-emergency contact if: you have any medication questions Follow-up/Referrals: Golden King MD [Primary Care Provider] - Diet: Heart Healthy Addtl Attending Provider Instructions: Mr Bair. Dalal came to the hospital complaining of left flank pain. You were evaluated and found to have kidney stones and acute kidney injury. You were managed with iv Fluids and pain medications. You passed a stone and your symptoms resolved. Please ensure following dietary recommendations we discussed and staying hydrated Please continue to take tamsulosin and follow up with the Urologist. It was a pleasure taking care of you. Pending Studies at Discharge: No Stand-Alone Forms: My [facility] [employer], Smoking Cessation Medications and DC Order Prescriptions: Continued etodolac 200 mg capsule 200 mg PO BID PRN (Reason: pain) Qty: 20 RF: 0 tamsulosin [Flomax] 0.4 mg capsule 0.4 mg PO DAILY Qty: 14 RF: 0 ondansetron 4 mg tablet,disintegrating 4 mg PO Q8H PRN (Reason: nausea and vomiting) Qty: 30 RF: 0 Discharge Orders: Discharge Order (Routine); Ordered 09/27/20 Ordered By: Ghislaine Chester Admission Data Admit Date/Time: 09/26/20 16:25 Attending Provider: Ghislaine Chester I. Admit Provider: Ghislaine Chester I. Primary Care Provider: Golden King Other Providers: Ghislaine Chester I. ; Janes Jain Other Interventions: Discharge Summary Assessment (RN) Last Done: 09/27/20 11:28
[2020-10-01 00:37] LABS: Component 2 DNR; Source KIDNEY
== END 2020-09-27 12:19 | disposition home or self-care (01) ==
LOC: 3E 14:28 → ED 14:28 → 3E 17:16